=== PATIENT | female | born 1980 | race Caucasian/White ===

== ENCOUNTER 2024-02-24 09:38 | Emergency (ER) | payer BC, SELFPAY ==
[2024-02-24] VITALS (13 sets, daily range): BP systolic 118–129; BP diastolic 61–83; PULSE 72–87; RESP 14–20; TEMP 36.3; O2SAT 97–100; BMI 25.0
--- NOTE | 2024-02-24 10:00 | EKG_ITS ---
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
--- NOTE | 2024-02-24 10:00 | DI.RAD.S_ITS ---
PROCEDURE: XR CHEST 1V INDICATIONS: chest pain TECHNIQUE: One view of the chest was acquired. COMPARISON: None. FINDINGS: Surgical changes and devices: None. Lungs and pleura: Lungs are clear. No pleural effusions or pneumothorax. Mediastinum: Mediastinal contours appear normal. Heart size is normal. Bones and chest wall: No suspicious bony lesions. Overlying soft tissues appear unremarkable. IMPRESSION: No acute cardiopulmonary abnormality is seen. Dictated by: Connor Carbajal M.D. on 02/24/2024 at 10:33 Approved by: Connor Carbajal M.D. on 02/24/2024 at 10:33
[2024-02-24 10:28] LABS: Add Manual Diff / Slide Review NO; Basophils Absolute Auto 0 /uL (0-100); Basophils Percent Auto 0.6 % (0-2); Eosinophils Absolute Auto 0 /uL (0-450); Hematocrit 39.4 % (36-46); Hemoglobin 13.1 g/dL (12.0-16.0); Lymphocytes Absolute Auto 1200 /uL (1100-4500); Lymphocytes Percent Auto 31.4 % (25-40); Mean Corpuscular HGB Conc 33.2 % (30-36); Mean Corpuscular Hemoglobin 29.7 PG (26-34); Mean Corpuscular Volume 89.6 fL (80-100); Monocytes Absolute Auto 400 /uL (0-900); Monocytes Percent Auto 9.8 % (3-14); Neutrophils Absolute Auto 2200 /uL (1500-7000); Neutrophils Percent Auto 57.2 % (50-75); Platelet Count 294 X10^3/uL (150-400); Red Cell Distribution Width 14.9 % (11.6-14.8); White Blood Cell Count 3.9 X10^3/uL (4.5-11.0)
[2024-02-24 10:35] LABS: INR 1.1 (0.9-1.3); Prothrombin Time 12.5 SECONDS (9.4-12.5)
[2024-02-24 10:38] LABS: PTT Partial Thromboplastin Tim 38 SECONDS (25.1-36.5)
[2024-02-24 10:42] LABS: Alanine Aminotransferase 18 IU/L (<35); Albumin 4.2 g/dL (3.5-5.0); Albumin Globulin Ratio 1.3 (1.0-2.8); Alkaline Phosphatase 69 U/L (38-126); Aspartate Aminotransferase 24 IU/L (14-36); BUN Creatinine Ratio 15.1 (6-22); Bilirubin Total 0.4 mg/dL (0.2-1.3); Blood Urea Nitrogen 13 mg/dL (7-17); Carbon Dioxide 29 mmol/L (22-32); Chloride 103 mmol/L (98-107); Creatine Kinase 79 U/L (30-135); Estimated Glomerular Filt Rate > 60 mL/min (>60); Globulin 3.2 g/dL (1.7-4.1); Glucose 104 mg/dL (70-100); HEMOLYSIS < 15 (0-50); Lipase 64 U/L (23-300); Magnesium 2.1 mg/dL (1.6-2.3); Potassium 4.2 mmol/L (3.4-5.1); Sodium 135 mmol/L (137-145); Total Protein 7.4 g/dL (6.3-8.2)
[2024-02-24 10:45] LABS: D Dimer 363 ng/ml (<500)
[2024-02-24 10:54] LABS: NT-proBNP (BNP-Adult 18+) 25 pg/mL (<125); Troponin I < 0.012 ng/mL (0.01-0.034)
[2024-02-24 13:16] LABS: Troponin I < 0.012 ng/mL (0.01-0.034)
--- NOTE | 2024-02-24 13:52 | PC.NURSE ---
Patient present with an onset of heart skipping beats yesterday. She states that the skipping feeling happens at rest and quickly resolves on it's own. She states that this has happened before but this time, starting this morning, she had chest squeezing with the skipped beats, which is not normal. The squeezing does not last longer that the skipping sensation. She was taking her luggage to her car today she had 3 rounds of skipping which is what caused the pain/ squeezing sensation. She denies dizziness, lightheadedness with the squeezing. She states she has been having more stress lately but is getting enough sleep and nutrition. she states she has on average 4x diet cokes/day
--- NOTE | 2024-02-24 16:06 | ED.CHESTPAIN ---
HPI - Chest Pain General Chief Complaint: Chest Pain Stated Complaint: chest pain Time Seen by Provider: 02/24/24 10:04 Source: patient Mode of arrival: Ambulatory Limitations: no limitations History of Present Illness HPI narrative: Who is healthy 44-year-old woman with a history of depression well treated with current medications and no recent medication changes complains of squeezing pain in her left chest, she was having some palpitation yesterday the pain today was worrisome and she comes in for further evaluation. She has not had similar symptoms. No significant medical history not currently on any medications. She has a history of a pulmonary embolism while taking control pills and smoking tobacco. She was briefly on anticoagulants and has not had problems since that time. Related Data Allergies Allergy/AdvReac Type Severity Reaction Status Date / Time Penicillins Allergy Verified 02/24/24 09:57 Review of Systems Review of Systems Narrative: Pertinent positive and negative findings as per HPI Patient History Social History Smoking Status: Unknown if ever smoked Smoking Status: Unknown if ever smoked alcohol intake frequency: holidays/special occasions only Substance Use Type: does not use Exam Initial Vital Signs Initial Vital Signs: Vital Signs Temperature 97.3 F L 02/24/24 09:57 Pulse Rate 87 02/24/24 09:57 Respiratory Rate 14 02/24/24 09:57 Blood Pressure 123/83 02/24/24 09:57 Pulse Oximetry 97 02/24/24 09:57 Oxygen Delivery Method Room Air 02/24/24 09:57 General: Healthy appearing, in no acute distress. Able to give a complete and coherent history. Well-nourished well-developed HEENT: Moist mucous membranes, normal sclera with reactive pupils, Respiratory: Lungs are clear to auscultation, no wheezing no rales no rhonchi. Full and symmetrical air movement Cardiac: Regular rate and rhythm no murmurs no bruits Abdomen: Soft, nontender, good bowel tones, no flank pain Skin: Warm and dry, no rashes Neurologic: Grossly neurologically intact with no obvious asymmetries or abnormalities Extremities: No trauma, well perfused Psych: Cooperative, appropriate insight and affect Course Orders Ordered: ED Orders 02/24/24 10:00 XR chest 1V Stat EKG-12 Lead Stat 02/24/24 10:18 Complete Blood Count AUTO DIFF Stat Comprehensive Metabolic Panel Stat D Dimer Stat Lipase Stat Magnesium Stat NT-proBNP (BNP-Adult 18+) Stat PTT Partial Thromboplastin Gilbert Stat Prothrombin Time INR Stat Troponin & CK Cardiac Panel Stat 02/24/24 12:35 Trop I [Troponin I] Stat Discontinued Medications Aspirin (Aspirin 81 Mg Chew Tab) 324 mg PO NOW ONE Stop: 02/24/24 10:01 Last Admin: 02/24/24 14:41 Dose: Not Given Documented By: RLS Vital Signs Vital signs: Vital Signs - 8 hr 02/24/24 09:57 02/24/24 12:39 02/24/24 12:40 Temperature 97.3 F L Pulse Rate 87 73 73 Respiratory Rate 14 20 20 Blood Pressure 123/83 Pulse Oximetry 97 100 Oxygen Delivery Method Room Air 02/24/24 12:40 02/24/24 13:00 02/24/24 13:00 Temperature Pulse Rate 72 Respiratory Rate 15 Blood Pressure 129/76 122/66 Pulse Oximetry 100 Oxygen Delivery Method 02/24/24 13:30 02/24/24 13:30 02/24/24 14:00 Temperature Pulse Rate 73 82 Respiratory Rate 16 14 Blood Pressure 119/69 Pulse Oximetry 100 100 Oxygen Delivery Method Room Air 02/24/24 14:00 02/24/24 14:30 02/24/24 14:30 Temperature Pulse Rate 77 Respiratory Rate 16 Blood Pressure 125/72 119/72 Pulse Oximetry 100 Oxygen Delivery Method 02/24/24 15:00 02/24/24 15:07 02/24/24 15:07 Temperature Pulse Rate 77 81 Respiratory Rate 16 17 Blood Pressure 124/75 Pulse Oximetry 98 98 Oxygen Delivery Method 02/24/24 15:30 02/24/24 15:30 02/24/24 16:00 Temperature Pulse Rate 79 Respiratory Rate 15 Blood Pressure 121/68 Pulse Oximetry 98 97 Oxygen Delivery Method 02/24/24 16:08 02/24/24 16:08 Temperature Pulse Rate 79 Respiratory Rate Blood Pressure 118/66 Pulse Oximetry 97 Oxygen Delivery Method Room Air MDM - Chest Pain Lab Data 02/24/24 10:18 02/24/24 10:18 Labs: Lab Results 02/24/24 02/24/24 Range/Units 10:18 12:35 WBC 3.9 L (4.5-11.0) X10^3/uL RBC 4.40 (4.0-5.2) X10^6/uL Hgb 13.1 (12.0-16.0) g/dL Hct 39.4 (36-46) % MCV 89.6 (80-100) fL MCH 29.7 (26-34) PG MCHC 33.2 (30-36) % RDW 14.9 H (11.6-14.8) % Plt Count 294 (150-400) X10^3/uL Neut % (Auto) 57.2 (50-75) % Lymph % (Auto) 31.4 (25-40) % Webster % (Auto) 9.8 (3-14) % Eos % (Auto) 1.0 L (2-4) % Baso % (Auto) 0.6 (0-2) % Neut # (Auto) 2200 (7275-3569) /uL Lymph # (Auto) 1200 (2330-2204) /uL Webster # (Auto) 400 (0-900) /uL Eos # (Auto) 0 (0-450) /uL Baso # (Auto) 0 (0-100) /uL PT 12.5 (9.4-12.5) SECONDS INR 1.1 (0.9-1.3) APTT 38 H (25.1-36.5) SECONDS D-Dimer 363 (<500) ng/ml Sodium 135 L (137-145) mmol/L Potassium 4.2 (3.4-5.1) mmol/L Chloride 103 (98-107) mmol/L Carbon Dioxide 29 (22-32) mmol/L BUN 13 (7-17) mg/dL Creatinine 0.86 (0.52-1.04) mg/dL Estimated GFR > 60 (>60) mL/min BUN/Creatinine Ratio 15.1 (6-22) Glucose 104 H (70-100) mg/dL Calcium 9.0 (8.4-10.2) mg/dL Magnesium 2.1 (1.6-2.3) mg/dL Total Bilirubin 0.4 (0.2-1.3) mg/dL AST 24 (14-36) IU/L ALT 18 (<35) IU/L Alkaline Phosphatase 69 (38-126) U/L Total Creatine Kinase 79 (30-135) U/L Troponin I < 0.012 < 0.012 (0.01-0.034) ng/mL NT-Pro-B Natriuret Pep 25 (<125) pg/mL Total Protein 7.4 (6.3-8.2) g/dL Albumin 4.2 (3.5-5.0) g/dL Globulin 3.2 (1.7-4.1) g/dL Albumin/Globulin Ratio 1.3 (1.0-2.8) Lipase 64 (23-300) U/L MDM Narrative Medical decision making narrative: CC: Squeezing chest pain and palpitation Complicating co-morbidities: We will treat his depression Data collected from: patient Differential considered: Perimenopause, thyroid abnormalities, atrial arrhythmia, ventricular arrhythmia, acute coronary syndrome, pulmonary embolism, pneumothorax Exam documented above, pertinent findings include: Entirely benign exam Lab Test results independently reviewed as above. Pertinent findings: CBC is unremarkable Coagulation studies are reassuring Chemistries show no acute abnormality Troponin and repeat troponin are undetectable Lipase is unremarkable Independently reviewed EKG: Sinus rhythm at a rate of 78. No acute ischemic changes. Imaging studies independently reviewed: Chest x-ray is reassuringly normal Discussion: 44-year-old woman who presents with occasional palpitations that she notices but are not particularly painful. Today she noticed some squeezing chest pain through the central chest that has since resolved. Workup in the emergency department is entirely unremarkable. Chest x-ray is benign lab work is reassuring. No evidence of acute coronary syndrome. My suspicion for pulmonary embolism is very low. We will add thyroid studies and patient will follow up on [facility]. On telemetry for her for our emergency room visit she has had an occasional PAC and no other specific abnormalities. We discussed all of these findings including follow up with her primary care physician. She asked if be safe to continue onto her long weekend plan for [facility] and I assured her that she [place] ferry [place]. Questions are answered and she is safe for discharge Discharge Plan Departure Patient Disposition: Home Clinical Impression: Heart palpitations, Atypical chest pain, Asymptomatic PVCs Instructions: Premature Ventricular Beats Activity Restrictions/Additional Instructions: Thank you for coming in today Your workup was very reassuring. There was no evidence of pulmonary edema, collapsed lung, acute coronary syndrome, significant pneumonia or other life-threatening abnormality I did add thyroid studies onto your blood work, please sign into our hospital portal to follow up on these if you have questions you can review this with your primary care physician On your telemetry strips, the heart monitor while you are in the emergency department, I did see an occasional early heartbeat at an occasional late heartbeat. This is not uncommon and not a sign of anything life-threatening or particularly problematic. If you continue to notice palpitations, please schedule an appointment with your primary care doctor, there are medications that can help decrease the frequency of them. Again, there was no reason that you require medications at this time for these occasional irregular beats. I hope you have a good weekend up on [facility] If you find that you are getting worse or develop any new symptoms, please feel free to return to the emergency department for further evaluation. Stand Alone Forms: Patient Portal/API
[2024-02-24 17:25] LABS: TSH w/ Reflex to FT4 1.42 uIU/mL (0.47-4.68)
== END 2024-02-24 17:06 | disposition home or self-care (01) ==
PROVIDERS: Emergency Provider Emergency Medicine
DX: R00.2 Palpitations (principal); R07.89 Other chest pain; I49.3 Ventricular premature depolarization
CPT/HCPCS: 36415; 71045; 80053; 82550; 83690; 83735; 83880; 84443; 84484; 85025; 85379; 85610; 85730; 93005; 99283; 99284